=== PATIENT | male | born 1935 | race Two or more races ===

== ENCOUNTER 2022-06-22 21:02 | Inpatient (IN) | payer OTHER ==
[~2022-06-22] VITALS: Ht 167.6 cm; Wt 58.4 kg
[2022-06-22 22:30] LABS: Basophils # (auto) 0 10 ^3/uL (0-0.2); Basophils % (auto) 0.7 % (0.0-2.0); Eosinophils # (auto) 0.1 10 ^3/uL (0-0.8); Eosinophils % (auto) 1.8 % (0.0-7.0); Hematocrit 33.3 % (41.0-53.0); Hemoglobin 10.9 g/dL (13.5-17.5); Lymphocytes # (auto) 1.1 10 ^3/uL (0.4-5.4); Lymphocytes % (auto) 15.2 % (10.0-50.0); Mean Corpuscular Hgb Conc. 32.8 g/dL (32.0-36.0); Mean Corpuscular Volume 97.6 fL (80.0-100.0); Monocytes # (auto) 0.7 10 ^3/uL (0-1.3); Monocytes % (auto) 9.4 % (0.0-12.0); Neutrophils # (auto) 5.3 10 ^3/uL (1.6-8.6); Neutrophils % (auto) 72.9 % (37.0-80.0); Red Blood Cells 3.41 10^6/uL (4.5-5.90); Red Cell Distribution Width 13.9 % (11.8-14.3); White Blood Cell 7.3 10^3/uL (4.4-10.8)
[2022-06-22 22:34] LABS: Urine Bacteria NONE SEEN /hpf (None Seen); Urine Blood TRACE /uL (Negative); Urine Mucus FEW (None Seen); Urine Specific Gravity 1.025 (1.001-1.035); Urine WBC <1 /hpf (0 - 3)
[2022-06-22 22:51] LABS: Albumin 3.7 g/dL (3.4-5.0); Calcium 8.4 mg/dL (8.5-10.1); Potassium 4.2 mmol/L (3.5-5.1)
[2022-06-22 22:53] LABS: BUN/Creatinine Ratio 26.6
[2022-06-22 23:02] LABS: Bilirubin, Total 0.5 mg/dL (0.2-1.0); Total Protein 6.7 g/dL (6.4-8.2)
[2022-06-23] MEDS ORDERED: GLUCAGON HYDROCHLORIDE (RDNA) 1 MG VIAL IV ONE (01:15)
[2022-06-23] MEDS ORDERED: SODIUM CHLORIDE 0.9% 500 ML IV ONE (01:15)
[2022-06-23] MEDS ORDERED: NITROGLYCERIN 0.4 MG SL TAB SL PRN (02:45)
[2022-06-23] MEDS ORDERED: ACETAMINOPHEN 325 MG TAB PO PRN (02:45)
[2022-06-23] MEDS ORDERED: ONDANSETRON HCL 4 MG/2 ML VIAL IV PRN (02:45)
[2022-06-23] MEDS ORDERED: MORPHINE SULFATE INJ 2 MG/ml SYRG IV PRN (02:45)
[2022-06-23] MEDS: ENOXAPARIN SOD 40 MG/0.4 ML SYRINGE SC SCH (10:18)
[2022-06-23] MEDS: PANTOPRAZOLE 40 MG TAB PO SCH (10:18)
[2022-06-23 16:55] VITALS: BP 152/83
[2022-06-23 18:31] VITALS: BP 146/64
[2022-06-23 22:00] VITALS: BP 131/74
[2022-06-23] MEDS ORDERED: LORazepam 2MG/ML-1ML VIAL IV PRN (22:45)
[2022-06-24 00:14] LABS: Folate (Folic Acid) 19.61 ng/mL (5.38-24)
[2022-06-24 05:00] VITALS: BP 107/68
[2022-06-24 06:20] LABS: Basophils # (auto) 0 10 ^3/uL (0-0.2); Basophils % (auto) 0.8 % (0.0-2.0); Eosinophils # (auto) 0.2 10 ^3/uL (0-0.8); Eosinophils % (auto) 4.4 % (0.0-7.0); Hematocrit 30.5 % (41.0-53.0); Hemoglobin 10.1 g/dL (13.5-17.5); Lymphocytes # (auto) 1.1 10 ^3/uL (0.4-5.4); Lymphocytes % (auto) 20.1 % (10.0-50.0); Mean Corpuscular Hemoglobin 32.2 pg (28.0-32.0); Mean Corpuscular Hgb Conc. 33.3 g/dL (32.0-36.0); Mean Corpuscular Volume 96.6 fL (80.0-100.0); Monocytes # (auto) 0.5 10 ^3/uL (0-1.3); Monocytes % (auto) 9.5 % (0.0-12.0); Neutrophils # (auto) 3.6 10 ^3/uL (1.6-8.6); Neutrophils % (auto) 65.2 % (37.0-80.0); Nucleated Red Blood Cells % 0.1 %; Red Blood Cells 3.15 10^6/uL (4.5-5.90); Red Cell Distribution Width 13.4 % (11.8-14.3); White Blood Cell 5.5 10^3/uL (4.4-10.8)
[2022-06-24 06:27] LABS: BUN/Creatinine Ratio 30.4; Calcium 8.4 mg/dL (8.5-10.1); Potassium 4.1 mmol/L (3.5-5.1)
[2022-06-24] MEDS: ENOXAPARIN SOD 40 MG/0.4 ML SYRINGE SC SCH (09:14)
[2022-06-24] MEDS: PANTOPRAZOLE 40 MG TAB PO SCH (09:14)
[2022-06-24 09:15] VITALS: BP_SYST 109; BP_SYST 116; BP_DIAS 63; BP_DIAS 78
[2022-06-24] MEDS: SODIUM CHLORIDE 0.9% 1,000 ML IV SCH ×2 (10:56→18:31)
[2022-06-24 13:27] VITALS: BP 107/64
[2022-06-24 17:00] VITALS: BP 149/75
[2022-06-24 21:11] VITALS: BP 114/60
[2022-06-25] MEDS: CYANOCOBALAMIN (B-12) 1000 MCG/1 ML VIAL IM ONE ×2 (00:40→00:52)
[2022-06-25] MEDS: SODIUM CHLORIDE 0.9% 1,000 ML IV SCH ×2 (02:19→10:48)
[2022-06-25 05:19] LABS: Potassium 4.2 mmol/L (3.5-5.1)
[2022-06-25 05:31] VITALS: BP 169/87
[2022-06-25 09:00] VITALS: BP 157/74
[2022-06-25] MEDS ORDERED: CYANOCOBALAMIN 500 MCG TAB PO SCH (10:00)
[2022-06-25] MEDS: ENOXAPARIN SOD 40 MG/0.4 ML SYRINGE SC SCH (10:48)
[2022-06-25] MEDS ORDERED: LISI20TA28 PO (11:53)
[2022-06-25] MEDS ORDERED: CYAN-17 PO (11:53)
[2022-06-25 13:00] VITALS: BP 122/64
[2022-06-25 15:39] VITALS: BP 122/64
== END 2022-06-25 18:20 | disposition home or self-care (01) | DRG 312 ==
LOC: ER 21:02 → TELE 06-23 02:37 → TELE-WESTW 06-23 15:33
PROVIDERS: ADMIT Nurse Practitioner; ATTEND Family Medicine
DX: I95.2 Hypotension due to drugs (principal); G92.8 Other toxic encephalopathy; N17.9 Acute kidney failure, unspecified; I10 Essential (primary) hypertension; E86.0 Dehydration; D64.9 Anemia, unspecified; F03.90 Unspecified dementia, unspecified severity, without behavioral disturbance, psychotic disturbance, mood disturbance, and anxiety; D32.0 Benign neoplasm of cerebral meninges; Z20.822 Contact with and (suspected) exposure to COVID-19; T44.7X5A Adverse effect of beta-adrenoreceptor antagonists, initial encounter
CPT/HCPCS: 36415; 70450; 70551; 71045; 80048; 80053; 81001; 82607; 82746; 83090; 83880; 84443; 84484; 85025; 93005; 93306; 93886; 95819; 96372; 97163; 99291; G0378